=== PATIENT | male | born 1965 | race Caucasian/White ===

== ENCOUNTER 2020-08-11 17:30 | Inpatient (IN) ==
[2020-08-11] MEDS ORDERED: NS 0.9% 1000 ml BAG 1,000 ML IV ONE ×2 (17:37→20:10)
[2020-08-11 19:22] LABS: ABS Basophils 0.1 10^3/ul (0-0.2); ABS Eosinophils 0.1 10^3/ul (0-0.6); ABS Lymphocytes 1.8 10^3/ul (1.0-4.8); Eosinophil % 0.8 %; Hematocrit 39 % (42-52); Hemoglobin 12.8 g/dL (14.0-18.0); Lymphocyte % 16.5 %; Mean Corpuscular HGB Conc 33 g/dL (31-36); Mean Corpuscular Hemoglobin 31 pg (27-31); Mean Corpuscular Volume 94 fL (80-94); Mean Platelet Volume 10.5 fL (7.4-10.4); Platelet Count 162 10^3/uL (150-450); Red Blood Count 4.11 10^6 /uL (4.18-5.48); Red Cell Distribution Width 14 % (10-15); White Blood Count 10.9 10^3/uL (3.5-10.8)
[2020-08-11 19:50] LABS: ALT 20 U/L (7-52); Albumin 3.5 g/dL (3.2-5.2); Albumin/Globulin Ratio 0.9 (1-3); Alkaline Phosphatase 65 U/L (34-104); Anion Gap 4 mmol/L (2-11); BUN/Creatinine Ratio 29.7 (8-20); Blood Urea Nitrogen 41 mg/dL (6-24); CO2 Carbon Dioxide 31 mmol/L (22-32); Chloride 102 mmol/L (101-111); EGFR Non-African American 53.7 (>60); Globulin 4.1 g/dL (2-4); Glucose 261 mg/dL (70-100); Sodium 137 mmol/L (135-145); Total Protein 7.6 g/dL (6.4-8.9)
[2020-08-11 19:52] LABS: Troponin I 0.04 ng/mL (<0.03)
[2020-08-11 20:00] LABS: Alcohol, S < 10 mg/dL (<10)
[2020-08-11 20:04] LABS: Urine Appearance Clear; Urine Bilirubin Negative (Negative); Urine Blood Negative (Negative); Urine Color Yellow; Urine Glucose 2+(150 mg/dL) (Negative); Urine Ketones Negative (Negative); Urine Nitrite Negative (Negative); Urine Protein 1+(30 mg/dL) (Negative); Urine Specific Gravity 1.015 (1.010-1.030); Urine Urobilinogen Negative (Negative)
[2020-08-11 20:13] LABS: Urine Bacteria Absent (Absent); Urine Red Blood Cell Absent (Absent); Urine White Blood Cell Absent (Absent)
[2020-08-11 20:15] LABS: Urine Benzodiazepine Screen None Detected (None Detect); Urine Cannabinoids Screen None Detected (None Detect); Urine Opiates Screen None Detected (None Detect)
[2020-08-11 21:19] LABS: Magnesium 1.8 mg/dL (1.9-2.7); Potassium Redraw 4.2 mmol/L (3.5-5.0)
[2020-08-12] MEDS ORDERED: Lidocaine 1% VIAL 10 MG/ML VIAL ONE (00:20)
[2020-08-12] MEDS ORDERED: Magnesium Sulfate 2 gm BAG 2 GM/50 ML BAG IVPB ONE (00:50)
[2020-08-12] MEDS ORDERED: Dextrose 50% Syringe 50 ml 25 GM/50 ML SYRINGE IV PUSH PRN (00:53)
[2020-08-12] MEDS ORDERED: Acyclovir IV 500 MG/10 ML 100 ML VIAL (500 MG) IVPB SCH (01:00)
[2020-08-12 01:16] LABS: C Reactive Protein 87.46 mg/L (<8.01); Total Iron Binding Capacity 262 mcg/dL (250-450); Transferrin 187 mg/dL (203-362)
[2020-08-12] MEDS ORDERED: Vancomycin 1,500 MG in NS 0.9% 250 ml 250 ML IVPB ONE (01:30)
[2020-08-12 01:38] LABS: Ferritin 367.6 ng/mL (24-336)
[2020-08-12] MEDS ORDERED: cefTRIAXone 2 GM ADDV.VIAL ONE (01:39)
[2020-08-12 01:41] LABS: Folate > 20.00 ng/mL (>3.99)
[2020-08-12 01:42] LABS: Vitamin B12 > 1450 pg/mL (180-914)
[2020-08-12] MEDS ORDERED: cefTRIAXone 2 GM ADDV.VIAL 2 GM in NS 0.9% 100 ml BAG 100 ML IV SCH (02:00)
[2020-08-12 02:07] LABS: Erythrocyte Sed Rate 60 mm/Hr (0-19)
[2020-08-12] MEDS ORDERED: Iodixanol (CONTRAST) 320 MG/ML 100 ML SDV IV ONE (03:26)
[2020-08-12] MEDS ORDERED: Acyclovir IV 800 MG in NS 0.9% 250 ml 250 ML IVPB SCH (06:00)
[2020-08-12] MEDS ORDERED: Vancomycin per Pharmacy 1 EA NOTE FOLLOW UP PRN (06:25)
[2020-08-12 08:01] LABS: % Iron Saturation 17 % (15-55); Iron 44 ug/dL (50-212); Total Iron Binding Capacity 258 mcg/dL (250-450); Transferrin 184 mg/dL (203-362); Unsaturated Iron Binding < 243 ug/dL
[2020-08-12 09:56] LABS: Magnesium 1.7 mg/dL (1.9-2.7)
[2020-08-12 10:01] LABS: T4, Total 8.68 mcg/dL (6.09-12.23)
[2020-08-12 10:10] LABS: Ferritin 347.7 ng/mL (24-336)
[2020-08-12] MEDS ORDERED: NS 0.9% 1000 ml BAG 1,000 ML IV SCH (11:45)
[2020-08-12] MEDS: Aspirin EC 81 mg TAB.EC (enteric coated) PO SCH (11:48)
[2020-08-12] MEDS ORDERED: Vancomycin 1000 MG in NS 0.9% 250 ML IVPB SCH (18:00)
[2020-08-13 06:51] LABS: ABS Basophils 0.1 10^3/ul (0-0.2); ABS Eosinophils 0.2 10^3/ul (0-0.6); ABS Monocytes 1.2 10^3/ul (0-0.8); ABS Neutrophils 9.6 10^3/ul (1.5-7.7); Eosinophil % 1.6 %; Hematocrit 35 % (42-52); Hemoglobin 11.6 g/dL (14.0-18.0); Lymphocyte % 15.5 %; Mean Corpuscular HGB Conc 33 g/dL (31-36); Mean Corpuscular Hemoglobin 31 pg (27-31); Mean Corpuscular Volume 93 fL (80-94); Mean Platelet Volume 9.6 fL (7.4-10.4); Platelet Count 256 10^3/uL (150-450); Red Blood Count 3.78 10^6 /uL (4.18-5.48); Red Cell Distribution Width 14 % (10-15); White Blood Count 13.1 10^3/uL (3.5-10.8)
[2020-08-13 07:23] LABS: Albumin 3.2 g/dL (3.2-5.2); Albumin/Globulin Ratio 0.9 (1-3); BUN/Creatinine Ratio 24.2 (8-20); Calcium 9.5 mg/dL (8.6-10.3); EGFR Non-African American 82.6 (>60); Globulin 3.4 g/dL (2-4); Total Bilirubin 0.4 mg/dL (0.2-1.0); Total Protein 6.6 g/dL (6.4-8.9)
[2020-08-13] MEDS ORDERED: HYOSCYAMINE 0.125 MG PO SCH (09:00)
[2020-08-13] MEDS: Aspirin EC 81 mg TAB.EC (enteric coated) PO SCH (14:36)
[2020-08-13] MEDS: Metoprolol Tartrate 5 mg VIAL 5 ml VIAL (1 mg/ml) IV SCH ×2 (17:12→21:11)
[2020-08-13] MEDS: Doxycycline 100 MG in NS 0.9% 250 ML BAG IVPB SCH (17:12)
[2020-08-13] MEDS ORDERED: Vancomycin Trough Check NOTE FOLLOW UP ONE ×2 (17:30)
[2020-08-13] MEDS: Enoxaparin 100 MG/ML SYR SUBCUT SCH (21:00)
[2020-08-13] MEDS: Valproic Acid IV 125 MG in NS 0.9% 100 ml BAG 100 ML IVPB SCH (21:18)
[2020-08-14] MEDS: Valproic Acid IV 125 MG in NS 0.9% 100 ml BAG 100 ML IVPB SCH ×3 (02:44→15:33)
[2020-08-14] MEDS: Doxycycline 100 MG in NS 0.9% 250 ML BAG IVPB SCH ×2 (04:02→16:11)
[2020-08-14] MEDS: Metoprolol Tartrate 5 mg VIAL 5 ml VIAL (1 mg/ml) IV SCH ×3 (04:04→16:12)
[2020-08-14] MEDS ORDERED: hydrOXYzine IM 50 MG/ML VIAL IM SCH (09:00)
[2020-08-14] MEDS: Enoxaparin 100 MG/ML SYR SUBCUT SCH ×2 (09:09→20:02)
[2020-08-14] MEDS: Aspirin EC 81 mg TAB.EC (enteric coated) PO SCH (09:18)
[2020-08-14] MEDS ORDERED: Iodixanol (CONTRAST) 320 MG/ML 100 ML SDV IV ONE (11:18)
[2020-08-14 12:28] LABS: ABS Basophils 0.1 10^3/ul (0-0.2); ABS Eosinophils 0.5 10^3/ul (0-0.6); ABS Lymphocytes 2.3 10^3/ul (1.0-4.8); ABS Monocytes 1.4 10^3/ul (0-0.8); Eosinophil % 3.8 %; Hematocrit 34 % (42-52); Hemoglobin 11.4 g/dL (14.0-18.0); Lymphocyte % 18.4 %; Mean Corpuscular HGB Conc 33 g/dL (31-36); Mean Corpuscular Hemoglobin 31 pg (27-31); Mean Corpuscular Volume 93 fL (80-94); Mean Platelet Volume 9.8 fL (7.4-10.4); Nucleated Red Blood Cells % 0.1; Platelet Count 258 10^3/uL (150-450); Red Blood Count 3.71 10^6 /uL (4.18-5.48); Red Cell Distribution Width 14 % (10-15); White Blood Count 12.3 10^3/uL (3.5-10.8)
[2020-08-14 12:49] LABS: BUN/Creatinine Ratio 24.3 (8-20); Calcium 8.1 mg/dL (8.6-10.3); EGFR African American 133.4 (>60); EGFR Non-African American 110.2 (>60); Potassium 3.3 mmol/L (3.5-5.0)
[2020-08-14] MEDS ORDERED: Potassium Chlor 20 meq TAB.ER PO ONE (21:00)
[2020-08-15 07:24] LABS: ABS Basophils 0.1 10^3/ul (0-0.2); ABS Eosinophils 0.5 10^3/ul (0-0.6); ABS Lymphocytes 2.2 10^3/ul (1.0-4.8); ABS Monocytes 1.3 10^3/ul (0-0.8); ABS Neutrophils 8.4 10^3/ul (1.5-7.7); Eosinophil % 3.7 %; Hematocrit 33 % (42-52); Mean Corpuscular HGB Conc 33 g/dL (31-36); Mean Corpuscular Hemoglobin 31 pg (27-31); Mean Corpuscular Volume 94 fL (80-94); Mean Platelet Volume 9.5 fL (7.4-10.4); Platelet Count 234 10^3/uL (150-450); Red Blood Count 3.51 10^6 /uL (4.18-5.48); Red Cell Distribution Width 14 % (10-15); White Blood Count 12.4 10^3/uL (3.5-10.8)
[2020-08-15 07:38] LABS: Albumin 2.8 g/dL (3.2-5.2); Albumin/Globulin Ratio 0.9 (1-3); BUN/Creatinine Ratio 20.5 (8-20); EGFR African American 82.7 (>60); EGFR Non-African American 68.3 (>60); Globulin 3.1 g/dL (2-4); Potassium 4.1 mmol/L (3.5-5.0); Total Bilirubin 0.4 mg/dL (0.2-1.0); Total Protein 5.9 g/dL (6.4-8.9)
[2020-08-15] MEDS: Aspirin EC 81 mg TAB.EC (enteric coated) PO SCH (08:26)
[2020-08-15] MEDS: Enoxaparin 100 MG/ML SYR SUBCUT SCH ×2 (08:27→20:52)
[2020-08-15] MEDS ORDERED: Insulin GLARGINE 100 un/ml 10 ml VIAL SUBCUT SCH (18:00)
[2020-08-16 07:46] LABS: CO2 Carbon Dioxide 24 mmol/L (22-32); Calcium 8.9 mg/dL (8.6-10.3); Chloride 108 mmol/L (101-111); Sodium 138 mmol/L (135-145)
[2020-08-16 07:51] LABS: BUN/Creatinine Ratio 29.3 (8-20); Blood Urea Nitrogen 29 mg/dL (6-24); EGFR African American 95.3 (>60); EGFR Non-African American 78.8 (>60); Glucose 231 mg/dL (70-100)
[2020-08-16 08:05] LABS: Hematocrit 37 % (42-52); Hemoglobin 12.1 g/dL (14.0-18.0); Mean Corpuscular HGB Conc 33 g/dL (31-36); Mean Corpuscular Hemoglobin 31 pg (27-31); Mean Corpuscular Volume 95 fL (80-94); Red Blood Count 3.87 10^6 /uL (4.18-5.48); Red Cell Distribution Width 14 % (10-15); White Blood Count 9.4 10^3/uL (3.5-10.8)
[2020-08-16 08:10] LABS: Anion Gap 6 mmol/L (2-11)
[2020-08-16] MEDS: Aspirin EC 81 mg TAB.EC (enteric coated) PO SCH (08:25)
[2020-08-16] MEDS: Enoxaparin 100 MG/ML SYR SUBCUT SCH (08:28)
[2020-08-16 12:29] VITALS: BP 103/58
== END 2020-08-16 16:00 | disposition home or self-care (01) ==
LOC: ED 17:30 → MED 08-12 00:43 → MEDTELE 08-12 08:12
PROVIDERS: ADMIT Hospitalist; ATTEND Internal Medicine